=== PATIENT | female | born 1950 | race Caucasian/White ===

== ENCOUNTER 2017-12-03 18:23 | Emergency (ER) | payer MEDICARE ==
--- NOTE | 2017-12-03 18:55 | ER Report ---
History and Physical Time Seen By MD: 18:30 Hx. of Stated Complaint: new onset L sided weakness and numbness/tingling HPI/ROS CHIEF COMPLAINT: Left-sided weakness HISTORY OF PRESENT ILLNESS: 67-year-old female traveling from [place] to [place] in the car. She began having symptoms of numbness in her left arm. Appro ximately 30 miles is to [place]. She got out of [place] at the truck stop and fell because a left-sided weakness. Her put her in the car began traveling westbound. About 2 miles East of [place]. He pulled over to the side of the road when she began to have vomiting and loss control of her bowels. She was grossly hypoxic noted by EMS. Fingerstick sugar of sugar of 159. Patient has only known past medical history of hypertension. Her blood pressure grossly elevated. He was brought in by EMS as a stroke alert with left-sided weakness. She has flaccidity of the left upper extremity and some movement of the left lower extremity. Patient also complaining of back pain. EMS recorded a fingerstick glucose of 167 area. Patient's notes onset of symptoms [place] of [place] approximately 30 miles likely between [id number] REVIEW OF SYSTEMS: Constitutional: No fever, no chills. Eyes: No discharge. ENT: No sore throat. Cardiovascular: No chest pain, no palpitations. Respiratory: No cough, no shortness of breath. Gastrointestinal: No abdominal pain, no vomiting. Genitourinary: No hematuria. Musculoskeletal: No back pain. Skin: No rashes. Neurological: No headache. Allergies: Coded Allergies: No Known Drug Allergies (Unverified , 12/03/17) Home Meds Reported Medications Metoprolol Tartrate (METOPROLOL TARTRATE) 100 Mg Tablet, 1 TAB PO BID, TAB 12/03/17 Past Medical/Surgical History Hypertension, smoker, greater than one pack per day for 50 years Constitutional Vital Sign - Last 24 Hours 12/03/17 12/03/17 12/03/17 12/03/17 18:23 18:23 18:23 18:30 Temp 98.0 Pulse 104 Resp 18 B/P (MAP) 196/127 196/127 (150) Pulse Ox 54 54 O2 Delivery Room Air O2 Flow Rate 6.0 12/03/17 12/03/17 12/03/178/18 18:33 18:35 18:38 18:43 Pulse 100 88 85 Resp 26 28 B/P (MAP) 222/111 (148) 223/115 (151) Pulse Ox 95 99 100 O2 Flow Rate 15.0 12/03/17 12/03/17 12/03/17 12/03/17 18:48 18:50 18:53 18:58 Pulse 83 82 81 Resp 28 27 27 B/P (MAP) 209/108 (141) Pulse Ox 100 100 96 12/03/17 12/03/17 12/03/17 12/03/17 18:59 19:01 19:06 19:20 Pulse 83 Resp 26 B/P (MAP) 178/88 (118) 172/86 (114) 183/90 (121) Pulse Ox 95 12/03/17 12/03/17 12/03/17 12/03/17 19:25 19:31 19:34 19:37 Pulse 90 Resp 19 B/P (MAP) 209/97 (134) 192/93 (126) 186/87 (120) Pulse Ox 97 O2 Flow Rate 10.0 12/03/17 12/03/17 12/03/17 12/03/17 19:40 19:44 19:46 19:50 Pulse 86 Resp 28 B/P (MAP) 182/88 (119) 178/82 (114) 167/93 (117) Pulse Ox 92 12/03/17 12/03/17 12/03/17 12/03/17 19:51 19:55 20:00 20:05 Pulse 85 85 Resp 23 20 B/P (MAP) 159/89 (112) 164/83 (110) 156/82 (106) Pulse Ox 95 94 12/03/17 12/03/17 12/03/17 12/03/17 20:10 20:15 20:20 20:25 Pulse 82 82 Resp 19 17 B/P (MAP) 155/83 (107) 157/87 (110) 161/89 (113) 153/83 (106) Pulse Ox 94 92 12/03/17 12/03/17 12/03/17 12/03/17 20:30 20:35 20:40 20:45 Pulse ??? 81 80 80 Resp 17 29 B/P (MAP) 147/90 (109) 162/83 (109) 153/102 (119) 158/81 (106) Pulse Ox 95 12/03/17 12/03/17 12/03/17 12/03/17 20:50 20:52 20:55 20:57 Pulse 79 78 ??? Resp 18 63 B/P (MAP) 158/89 (112) Pulse Ox 92 93 91 O2 Flow Rate 3.0 12/03/17 12/03/17 12/03/17 12/03/17 20:59 21:00 21:01 21:07 Pulse 76 78 81 Resp 35 14 29 B/P (MAP) 148/83 (104) Pulse Ox 85 90 92 12/03/17 12/03/17 12/03/17 12/03/17 21:09 21:11 21:13 21:15 Pulse ??? 81 80 Resp 28 15 B/P (MAP) 170/124 (139) Pulse Ox 89 93 97 12/03/17 12/03/17 12/03/17 21:17 21:22 21:42 Pulse ? Resp 35 Pulse Ox 96 Intake and Output 12/03/17 12/03/17 12/04/17 14:59 22:59 06:59 Intake Total 131 ml Balance 131 ml Physical Exam General Appearance: The patient is alert, has no immediate need for airway protection and no signs of toxicity. Grossly elevated blood pressure 209/127. Patient cyanotic. Initial pulse ox 54% on 2 L Eyes: Pupils equal and round no pallor or injection. No facial droop noted ENT, Mouth: Mucous membranes are moist. Respiratory: There are no retractions, lungs are clear to auscultation. Cardiovascular: Regular rate and rhythm. Gastrointestinal: Abdomen is soft and non tender, no masses, bowel sounds normal. Neurological: Alert and oriented 3, cranial nerves II through XII intact movement of extremities except left upper extremity showing weakness Skin: Warm and dry, no rashes. Musculoskeletal: Neck is supple non tender. No bruits Extremities are nontender, nonswollen and have full range of motion. No edema, abrasion, left ankle DIFFERENTIAL DIAGNOSIS: After history and physical exam differential diagnosis was considered for altered mental status including but not limited to hypoglycemia, infectious process, electrolyte abnormality, head injury and intoxicants. Additionally,weakness including but not limited to electrolyte abnormality, depression, anxiety, CVA, spinal cord abnormality, and infectious causes. Medical Decision Making Data Points Result Diagram: 12/03/17184912/03/171849 Laboratory Hematology Test 12/03/17 18:35 12/03/17 18:50 Whole Blood Glucose 194 mg/DL (75-110) Red Blood Count 5.50 M/uL (4.17-5.56) Mean Corpuscular Volume 91.5 fL (80.0-96.0) Mean Corpuscular Hemoglobin 30.3 pg (26.0-33.0) Mean Corpuscular Hemoglobin Concent 33.1 g/dL (32.0-36.0) Red Cell Distribution Width 14.7 % (11.5-14.5) Mean Platelet Volume 8.1 fL (7.2-11.1) Neutrophils (%) (Auto) 73.1 % (39.4-72.5) Lymphocytes (%) (Auto) 20.3 % (17.6-49.6) Monocytes (%) (Auto) 5.6 % (4.1-12.4) Eosinophils (%) (Auto) 0.6 % (0.4-6.7) Basophils (%) (Auto) 0.4 % (0.3-1.4) Nucleated RBC Relative Count (auto) 0.0 /100WBC Neutrophils # (Auto) 10.1 K/uL (2.0-7.4) Lymphocytes # (Auto) 2.8 K/uL (1.3-3.6) Monocytes # (Auto) 0.8 K/uL (0.3-1.0) Eosinophils # (Auto) 0.1 K/uL (0.0-0.5) Basophils # (Auto) 0.1 K/uL (0.0-0.1) Nucleated RBC Absolute Count (auto) 0.00 K/uL Prothrombin Time 12.6 seconds (12.0-14.4) Prothromb Time International Ratio 0.94 Activated Partial Thromboplast Time 22 seconds (23-35) Sodium Level 140 mmol/L (137-145) Potassium Level 3.6 mmol/L (3.5-5.0) Chloride Level 99 mmol/L (98-107) Carbon Dioxide Level 30 mmol/L (22-31) Blood Urea Nitrogen 19 mg/dl (7-18) Creatinine 0.90 mg/dl (0.52-1.04) Glomerular Filtration Rate Calc > 60.0 Random Glucose 170 mg/dl (75-110) Calcium Level 8.5 mg/dl (8.4-10.2) Total Bilirubin 0.4 mg/dl (0.2-1.3) Aspartate Amino Transf (AST/SGOT) 34 U/L (0-35) Alanine Aminotransferase (ALT/SGPT) 35 U/L (0-56) Alkaline Phosphatase 105 U/L (0-126) Troponin I < 0.012 ng/ml B-Type Natriuretic Peptide 518 pg/ml (0-100) Total Protein 6.5 g/dl (6.3-8.2) Albumin 3.8 g/dl (3.5-5.0) Chemistry Test 12/03/17 18:35 12/03/17 18:50 Whole Blood Glucose 194 mg/DL (75-110) White Blood Count 13.8 k/uL (4.5-11.0) Red Blood Count 5.50 M/uL (4.17-5.56) Hemoglobin 16.7 g/dL (12.0-16.0) Hematocrit 50.3 % (34.0-47.0) Mean Corpuscular Volume 91.5 fL (80.0-96.0) Mean Corpuscular Hemoglobin 30.3 pg (26.0-33.0) Mean Corpuscular Hemoglobin Concent 33.1 g/dL (32.0-36.0) Red Cell Distribution Width 14.7 % (11.5-14.5) Platelet Count 248 K/uL (150-450) Mean Platelet Volume 8.1 fL (7.2-11.1) Neutrophils (%) (Auto) 73.1 % (39.4-72.5) Lymphocytes (%) (Auto) 20.3 % (17.6-49.6) Monocytes (%) (Auto) 5.6 % (4.1-12.4) Eosinophils (%) (Auto) 0.6 % (0.4-6.7) Basophils (%) (Auto) 0.4 % (0.3-1.4) Nucleated RBC Relative Count (auto) 0.0 /100WBC Neutrophils # (Auto) 10.1 K/uL (2.0-7.4) Lymphocytes # (Auto) 2.8 K/uL (1.3-3.6) Monocytes # (Auto) 0.8 K/uL (0.3-1.0) Eosinophils # (Auto) 0.1 K/uL (0.0-0.5) Basophils # (Auto) 0.1 K/uL (0.0-0.1) Nucleated RBC Absolute Count (auto) 0.00 K/uL Prothrombin Time 12.6 seconds (12.0-14.4) Prothromb Time International Ratio 0.94 Activated Partial Thromboplast Time 22 seconds (23-35) Glomerular Filtration Rate Calc > 60.0 Calcium Level 8.5 mg/dl (8.4-10.2) Total Bilirubin 0.4 mg/dl (0.2-1.3) Aspartate Amino Transf (AST/SGOT) 34 U/L (0-35) Alanine Aminotransferase (ALT/SGPT) 35 U/L (0-56) Alkaline Phosphatase 105 U/L (0-126) Troponin I < 0.012 ng/ml B-Type Natriuretic Peptide 518 pg/ml (0-100) Total Protein 6.5 g/dl (6.3-8.2) Albumin 3.8 g/dl (3.5-5.0) Coagulation Test 12/03/17 18:50 Prothrombin Time 12.6 seconds Prothromb Time International Ratio 0.94 Activated Partial Thromboplast Time 22 seconds EKG/Imaging EKG Interpretation 12 lead EK Rhythm: normal sinus rhythm Babcock: Right axis deviation QRS: normal ST segments: Diffuse nonspecific ST and T-wave changes, no overt signs of ischemia, no old EKGs for comparison Imaging X-ray: Single view portable chest x-ray, was obtained. I viewed the images myself on the PACS system. My interpretation of the images is: hazy lung goodman consistent with mild pulmonary vascular congestion, no effusion, normal mediastinum, borderline cardiomegaly . The radiologist interpretation had no clinically significant variation from this interpretation. Results: CT scan of the head without contrast was obtained. The results of the study are EXAMINATION: CT HEAD WITHOUT CONTRAST COMPARISON: None available HISTORY: Altered mental status. Left-sided paralysis. PROCEDURE: Noncontrast CT from the vertex through the skull base. One of the following dose optimization techniques was utilized in the performance of this exam: Automated exposure control; adjustment of the mA and/or kV according to the patient's size; or use of an iterative reconstruction technique. Specific details can be referenced in the facility's radiology CT exam operational policy. FINDINGS: Brain volume: Age-appropriate. Hemorrhage/extra-axial fluid: None. Mass effect/midline shift/edema: None. Ischemia: Perez-white differentiation is preserved. Ventricles and basal cisterns: Within normal limits. Posterior fossa: Negative. Vessels: Negative. Calvarium, skull base, and scalp: Negative. Visualized sinuses and orbits: Within normal limits. IMPRESSION: Negative noncontrast head CT. The study was read by the radiologist. I viewed the images myself on the PACS system. Results: CT scan of theCTA pulmonary angiogram was obtained. The results of the study are EXAMINATION: CT CHEST PULMONARY ANGIOGRAM COMPARISON: Chest x-ray same day. HISTORY: Hypoxia. PROCEDURE: Pulmonary arterial phase imaging of the chest with 75 mL intravenous Isovue 370. Reconstruction of the source data set includes multiplanar 2D in the sagittal and coronal planes, and 3D reconstructed coronal slab MIP series. One of the following dose optimization techniques was utilized in the performance of this exam: Automated exposure control; adjustment of the mA and/or kV according to the patient's size; or use of an iterative reconstruction technique. Specific details can be referenced in the facility's radiology CT exam operational policy. FINDINGS: Pulmonary vasculature: There is good contrast opacification of the pulmonary arterial system. 4.0 cm dilated main pulmonary artery. No pulmonary artery filling defect through the subsegmental level. Cardiac and mediastinum: Cardiac chamber size is within normal limits. No pericardial effusion. No thoracic aortic aneurysm. No thoracic lymph node enl argement. Lungs and pleura: Mild apical emphysema. Minimal dependent atelectasis. No consolidation or nodule. No pneumothorax, edema, or effusion. Airways: Negative. Upper abdomen: Left adrenal 3.2 x 2.4 cm adenoma. No acute findings. Osseous structures: L1 superior endplate chronic appearing deformity. Mild concavity of the T4 superior endplate is also favored to be chronic. Right posterior rib healed fractures. No acute findings. IMPRESSION: 1. No pulmonary embolism or evidence of acute cardiopulmonary disease. 2. 4.0 cm dilated main pulmonary artery is suggestive of pulmonary artery hypertension. 3. Left adrenal 3.2 cm adenoma. 4. Mild emphysema. The study was read by the radiologist. I viewed the images myself on the PACS system. Results: CT scan of the head and cervical neck CTA was obtained. The results of the study are Examination: CTA of the head and neck Comparison: Noncontrast head CT earlier the same day. History: Left sided weakness Procedure: Arterial phase imaging of the head and neck with 75 mL intravenous Isovue 370. Reconstruction of the source data set includes multiplanar 2D in the sagittal and coronal planes, and 3D reconstructed coronal slab MIP series. Percent stenosis is based on NASCET criteria. One of the following dose optimization techniques was utilized in the performance of this exam: Automated exposure control; adjustment of the mA and/or kV according to the patient's size; or use of an iterative r econstruction technique. Specific details can be referenced in the facility's radiology CT exam operational policy. Findings: Aortic arch: Minimal arch atherosclerosis. Arch vessel origins are widely patent. Right extracranial carotid system: At the common carotid bifurcation is a short segment intimal flap with an immediately distal 8 mm long segment of partially calcified plaque in the proximal internal carotid artery. The plaque results in a near occlusion of the proximal internal carotid artery; the distal internal carotid artery is otherwise unremarkable. The external carotid artery is preserved. Left extracranial carotid system: Common carotid artery is unremarkable. 12 mm long segment of heterogeneously partially calcified plaque in the proximal internal carotid artery with a 60-70% luminal stenosis. The distal internal carotid artery is widely patent. Vertebral arteries: Noncalcified plaque at the right vertebral artery origin results in approximately 50-70% luminal narrowing. The left vertebral artery origin is widely patent. The vertebral arteries are codominant and otherwise unremarkable. Intracranial internal carotid arteries: Minimal atherosclerosis. Anterior cerebral arteries: Negative. Anterior communicating artery is present. Middle cerebral arteries: Negative. Territorial branches are symmetric. Vertebrobasilar system and posterior cerebral arteries: Basilar artery forms normally. Both posterior cerebral arteries arise from the basilar artery. Bilate ral posterior communicating arteries are present; the right posterior communicating artery is very diminutive. Posterior cerebral arteries are both patent. Visualized cerebellar vessels are unremarkable. Dural venous sinuses: Normal enhancement. Brain: Better evaluated on the earlier noncontrast head CT. Cervical spine: No vertebral body height loss or malalignment. Mild degenerative change but still be at the atlantodens interval. Paranasal sinus and orbits: Negative. Prevertebral soft tissues: Negative. Visualized upper chest: As discussed on the chest CT. IMPRESSION: 1. Right common carotid bifurcation small intimal flap with an 8 mm long segment of partially calcified plaque in the proximal internal carotid artery results in near occlusion of the proximal internal carotid artery lumen. The distal internal carotid artery is normal in caliber. 2. Proximal left internal carotid artery 12 mm long segment of partially calcified plaque results in 60-70% luminal stenosis. 3. Right vertebral artery origin noncalcified plaque with 50-70% luminal stenosis. 4. Negative CTA of the intracranial arteries. The study was read by the radiologist. I viewed the images myself on the PACS system. ED Course/Re-evaluation Clinical Indication for ER IV: IV Access ED Course Tele-stroke consultation with Dr. Aminah Flores initiated on stroke camera. Patient was admitted directly to CT and then returned to an examination room. H&P was done. The differential diagnoses was considered. On clinical examination. Strep any weakness and some left lower extremity weakness. She was grossly hypoxic at 54% on arrival. Contributed to some of her functional deficit. After returning from CT scan. Patient's O2 saturation improved with 100% nonrebreather mask to 100%. Her mental status improved as well. Tele- stroke camera was initiated. Patient's blood pressure was grossly elevated. She was given labetalol 20 mg IV 2. Over approximately 20 minute period of monitoring her blood pressure. She was taken back to CT for CT a pulmonary angiogram, CTA of neck and CTA of head. Patient returned with elevated blood pressure from radiology. Nicardipine drip was initiated. Repeat blood pressure after a short 20 minute period showed continued elevation of the blood pressure in the nicardipine drip was advanced to 7.5. TPA was administered with consultation of Dr. Flores based on patient's weight. Accepting physician at [facility] will be Dr. Valencia neuro ICU attending Decision to Disposition Date: Dec 03, 2017 Decision to Disposition Time: 19:20 Critical Care Time I spent a total of 120 minutes of critical care time in obtaining history, performing a physical exam, bedside monitoring of interventions, collecting and interpreting tests and discussion with consultants but not including time spent performing procedures. Depart Departure Latest Vital Signs Vital Signs Date Time Temp Pulse Resp B/P (MAP) Pulse Ox O2 Delivery O2 Flow Rate FiO2 9/8/18 21:42 ??? 12/03/17 21:17 35 96 12/03/17 21:15 170/124 (139) 12/03/17 20:52 3.0 12/03/17 18:23 98.0 Room Air Impression: Primary Impression: Altered mental status Additional Impressions: CVA (cerebral vascular accident) Hypoxia Condition: Critical Disposition: XFER TO [facility] Problem Qualifiers JOSE MOSQUEDA DO Dec 03, 2017 18:55
--- NOTE | 2017-12-03 18:59 | RADIOLOGY IMAGING REPORT ---
FACILITY: [facility] PATIENT NAME: Twila Conti : 1950 MR: [id number] V: [id number] EXAM DATE: ORDERING PHYSICIAN: JOSE MOSQUEDA TECHNOLOGIST: Location: [facility] [place] Patient: Twila Conti : 1950 Visit/Account:[id number] Date of Sevice: 12/03/2017 Examination: CHEST SINGLE AP Comparison: None. History: Altered mental status. Findings: Cardiac and hilar contour is mildly enlarged. Mild pulmonary vascular congestion. Mild chinmay bronchial thickening. No consolidation. No pneumothorax or effusion. Right posterior lateral healed r ib fractures. IMPRESSION: 1. Mild cardiac silhouette enlargement and vascular congestion. 2. Peribronchial thickening suggestive of an acute versus chronic bronchitis or reactive airway disea se. Mild pulmonary edema is considered less likely. Report Dictated By: Miguel Szymanski MD at 12/03/2017 6:53 PM Report E-Signed By: Miguel Szymanski MD at 12/03/2017 6:56 PM [id number]
--- NOTE | 2017-12-03 18:59 | RADIOLOGY IMAGING REPORT ---
FACILITY: [facility] PATIENT NAME: Twila Conti : 1950 MR: [id number] V: [id number] EXAM DATE: ORDERING PHYSICIAN: JOSE MOSQUEDA TECHNOLOGIST: Location: [facility] [place] Patient: Twila Conti : 1950 Visit/Account:[id number] Date of Sevice: 12/03/2017 EXAMINATION: CT HEAD WITHOUT CONTRAST COMPARISON: None available HISTORY: Altered mental status. Left-sided paralysis. PROCEDURE: Noncontrast CT from the vertex through the skull base. One of the following dose optimizat ion techniques was utilized in the performance of this exam: Automated exposure control; adjustment o f the mA and/or kV according to the patient's size; or use of an iterative reconstruction technique. Specific details can be referenced in the facility's radiology CT exam operational policy. FINDINGS: Brain volume: Age-appropriate. Hemorrhage/extra-axial fluid: None. Mass effect/midline shift/edema: None. Ischemia: Perez-white differentiation is preserved. Ventricles and basal cisterns: Within normal limits. Posterior fossa: Negative. Vessels: Negative. Calvarium, skull base, and scalp: Negative. Visualized sinuses and orbits: Within normal limits. IMPRESSION: Negative noncontrast head CT. Results were discussed with Dr. Flores at 12/03/2017 6:56 PM. Report Dictated By: Miguel Szymanski MD at 12/03/2017 6:51 PM Report E-Signed By: Miguel Szymanski MD at 12/03/2017 6:57 PM WSN:[id number]
[2017-12-03 19:00] LABS: PLATELET COUNT, AUTOMATED 248 K/uL (150-450)
[2017-12-03] MEDS ORDERED: NICARDIPINE(*) 20MG/NS 200 ML 200 ML IV ONE (19:05)
[2017-12-03 19:06] LABS: INR 0.94
[2017-12-03] MEDS ORDERED: NS(*) 0.9% 50 ML BAG 50 ML ONE ×2 (19:08→19:16)
[2017-12-03] MEDS ORDERED: IOPAMIDOL 76% 75 ML INFUS BTL 75 ML ONE ×2 (19:09→19:16)
[2017-12-03] MEDS ORDERED: LABETALOL HCL 100 MG/20ML VIAL IVP ONE ×2 (19:10→19:15)
[2017-12-03] MEDS ORDERED: ALTEPLASE RECOMB 100 MG/100 ML VIAL IV ONE (19:15)
[2017-12-03] MEDS ORDERED: METO-257 PO (19:27)
--- NOTE | 2017-12-03 20:05 | RADIOLOGY IMAGING REPORT ---
FACILITY: [facility] PATIENT NAME: Twila Conti : 1950 MR: [id number] V: [id number] EXAM DATE: ORDERING PHYSICIAN: JOSE MOSQUEDA TECHNOLOGIST: Location: [facility] Patient: Twila Conti : 1950 Visit/Account:[id number] Date of Sevice: 12/03/2017 EXAMINATION: CT CHEST PULMONARY ANGIOGRAM COMPARISON: Chest x-ray same day. HISTORY: Hypoxia. PROCEDURE: Pulmonary arterial phase imaging of the chest with 75 mL intravenous Isovue 370. Reconstru ction of the source data set includes multiplanar 2D in the sagittal and coronal planes, and 3D recon structed coronal slab MIP series. One of the following dose optimization techniques was utilized in the performance of this exam: Autom ated exposure control; adjustment of the mA and/or kV according to the patient's size; or use of an i terative reconstruction technique. Specific details can be referenced in the facility's radiology C T exam operational policy. FINDINGS: Pulmonary vasculature: There is good contrast opacification of the pulmonary arterial system. 4.0 cm dilated main pulmonary artery. No pulmonary artery filling defect through the subsegmental level. Cardiac and mediastinum: Cardiac chamber size is within normal limits. No pericardial effusion. No th oracic aortic aneurysm. No thoracic lymph node enlargement. Lungs and pleura: Mild apical emphysema. Minimal dependent atelectasis. No consolidation or nodule. N o pneumothorax, edema, or effusion. Airways: Negative. Upper abdomen: Left adrenal 3.2 x 2.4 cm adenoma. No acute findings. Osseous structures: L1 superior endplate chronic appearing deformity. Mild concavity of the T4 superi or endplate is also favored to be chronic. Right posterior rib healed fractures. No acute findings. IMPRESSION: 1. No pulmonary embolism or evidence of acute cardiopulmonary disease. 2. 4.0 cm dilated main pulmonary artery is suggestive of pulmonary artery hypertension. 3. Left adrenal 3.2 cm adenoma. 4. Mild emphysema. Report Dictated By: Miguel Szymanski MD at 12/03/2017 7:55 PM Report E-Signed By: Miguel Szymanski MD at 12/03/2017 8:01 PM WSN:[id number]
--- NOTE | 2017-12-03 20:20 | RADIOLOGY IMAGING REPORT ---
FACILITY: [facility] - [place] PATIENT NAME: Twila Conti : 1950 MR: [id number] V: [id number] EXAM DATE: ORDERING PHYSICIAN: JOSE MOSQUEDA TECHNOLOGIST: Location: [facility] [place] Patient: Twila Conti : 1950 Visit/Account:[id number] Date of Sevice: 12/03/2017 Examination: CTA of the head and neck Comparison: Noncontrast head CT earlier the same day. History: Left sided weakness Procedure: Arterial phase imaging of the head and neck with 75 mL intravenous Isovue 370. Reconstruct ion of the source data set includes multiplanar 2D in the sagittal and coronal planes, and 3D reconst ructed coronal slab MIP series. Percent stenosis is based on NASCET criteria. One of the following dose optimization techniques was utilized in the performance of this exam: Autom ated exposure control; adjustment of the mA and/or kV according to the patient's size; or use of an i terative reconstruction technique. Specific details can be referenced in the facility's radiology C T exam operational policy. Findings: Aortic arch: Minimal arch atherosclerosis. Arch vessel origins are widely patent. Right extracranial carotid system: At the common carotid bifurcation is a short segment intimal flap with an immediately distal 8 mm long segment of partially calcified plaque in the proximal internal c arotid artery. The plaque results in a near occlusion of the proximal internal carotid artery; the di stal internal carotid artery is otherwise unremarkable. The external carotid artery is preserved. Left extracranial carotid system: Common carotid artery is unremarkable. 12 mm long segment of hetero geneously partially calcified plaque in the proximal internal carotid artery with a 60-70% luminal st enosis. The distal internal carotid artery is widely patent. Vertebral arteries: Noncalcified plaque at the right vertebral artery origin results in approximately 50-70% luminal narrowing. The left vertebral artery origin is widely patent. The vertebral arteries are codominant and otherwise unremarkable. Intracranial internal carotid arteries: Minimal atherosclerosis. Anterior cerebral arteries: Negative. Anterior communicating artery is present. Middle cerebral arteries: Negative. Territorial branches are symmetric. Vertebrobasilar system and posterior cerebral arteries: Basilar artery forms normally. Both posterior cerebral arteries arise from the basilar artery. Bilateral posterior communicating arteries are pres ent; the right posterior communicating artery is very diminutive. Posterior cerebral arteries are bot h patent. Visualized cerebellar vessels are unremarkable. Dural venous sinuses: Normal enhancement. Brain: Better evaluated on the earlier noncontrast head CT. Cervical spine: No vertebral body height loss or malalignment. Mild degenerative change but still be at the atlantodens interval. Paranasal sinus and orbits: Negative. Prevertebral soft tissues: Negative. Visualized upper chest: As discussed on the chest CT. IMPRESSION: 1. Right common carotid bifurcation small intimal flap with an 8 mm long segment of partially calcifi ed plaque in the proximal internal carotid artery results in near occlusion of the proximal internal carotid artery lumen. The distal internal carotid artery is normal in caliber. 2. Proximal left internal carotid artery 12 mm long segment of partially calcified plaque results in 60-70% luminal stenosis. 3. Right vertebral artery origin noncalcified plaque with 50-70% luminal stenosis. 4. Negative CTA of the intracranial arteries. Results were discussed with Dr. Flores at 12/03/2017 8:12 PM. Report Dictated By: Miguel Szymanski MD at 12/03/2017 8:01 PM Report E-Signed By: Miguel Szymanski MD at 12/03/2017 8:16 PM WSN:[id number]
--- NOTE | 2017-12-03 20:20 | RADIOLOGY IMAGING REPORT ---
FACILITY: [facility] - [place] PATIENT NAME: Twila Conti : 1950 MR: [id number] V: [id number] EXAM DATE: ORDERING PHYSICIAN: JOSE MOSQUEDA TECHNOLOGIST: Location: [facility] - [place] Patient: Twila Conti : 1950 Visit/Account:[id number] Date of Sevice: 12/03/2017 Examination: CTA of the head and neck Comparison: Noncontrast head CT earlier the same day. History: Left sided weakness Procedure: Arterial phase imaging of the head and neck with 75 mL intravenous Isovue 370. Reconstruct ion of the source data set includes multiplanar 2D in the sagittal and coronal planes, and 3D reconst ructed coronal slab MIP series. Percent stenosis is based on NASCET criteria. One of the following dose optimization techniques was utilized in the performance of this exam: Autom ated exposure control; adjustment of the mA and/or kV according to the patient's size; or use of an i terative reconstruction technique. Specific details can be referenced in the facility's radiology C T exam operational policy. Findings: Aortic arch: Minimal arch atherosclerosis. Arch vessel origins are widely patent. Right extracranial carotid system: At the common carotid bifurcation is a short segment intimal flap with an immediately distal 8 mm long segment of partially calcified plaque in the proximal internal c arotid artery. The plaque results in a near occlusion of the proximal internal carotid artery; the di stal internal carotid artery is otherwise unremarkable. The external carotid artery is preserved. Left extracranial carotid system: Common carotid artery is unremarkable. 12 mm long segment of hetero geneously partially calcified plaque in the proximal internal carotid artery with a 60-70% luminal st enosis. The distal internal carotid artery is widely patent. Vertebral arteries: Noncalcified plaque at the right vertebral artery origin results in approximately 50-70% luminal narrowing. The left vertebral artery origin is widely patent. The vertebral arteries are codominant and otherwise unremarkable. Intracranial internal carotid arteries: Minimal atherosclerosis. Anterior cerebral arteries: Negative. Anterior communicating artery is present. Middle cerebral arteries: Negative. Territorial branches are symmetric. Vertebrobasilar system and posterior cerebral arteries: Basilar artery forms normally. Both posterior cerebral arteries arise from the basilar artery. Bilateral posterior communicating arteries are pres ent; the right posterior communicating artery is very diminutive. Posterior cerebral arteries are bot h patent. Visualized cerebellar vessels are unremarkable. Dural venous sinuses: Normal enhancement. Brain: Better evaluated on the earlier noncontrast head CT. Cervical spine: No vertebral body height loss or malalignment. Mild degenerative change but still be at the atlantodens interval. Paranasal sinus and orbits: Negative. Prevertebral soft tissues: Negative. Visualized upper chest: As discussed on the chest CT. IMPRESSION: 1. Right common carotid bifurcation small intimal flap with an 8 mm long segment of partially calcifi ed plaque in the proximal internal carotid artery results in near occlusion of the proximal internal carotid artery lumen. The distal internal carotid artery is normal in caliber. 2. Proximal left internal carotid artery 12 mm long segment of partially calcified plaque results in 60-70% luminal stenosis. 3. Right vertebral artery origin noncalcified plaque with 50-70% luminal stenosis. 4. Negative CTA of the intracranial arteries. Results were discussed with Dr. Flores at 12/03/2017 8:12 PM. Report Dictated By: Miguel Szymanski MD at 12/03/2017 8:01 PM Report E-Signed By: Miguel Szymanski MD at 12/03/2017 8:16 PM WSN:[id number]
[2017-12-03 21:15] VITALS: BP 170/124
--- NOTE | 2017-12-03 22:04 | EKG ---
FACILITY: [facility] - [place] PATIENT NAME: SYED YARBROUGH : [id number] MR: [id number] V: [id number] EXAM DATE: ORDERING PHYSICIAN: JOSE MOSQUEDA TECHNOLOGIST: VERONICA Test Reason : ? STROKE Blood Pressure : / mmHG Vent. Rate : 083 BPM Atrial Rate : 083 BPM P-R Int : 146 ms QRS Dur : 088 ms QT Int : 392 ms P-R-T Axes : 080 098 047 degrees QTc Int : 460 ms Normal sinus rhythm Rightward axis Nonspecific ST abnormality Abnormal ECG No previous ECGs available Confirmed by Robbie Adams ([id number] on 12/04/2017 6:33:25 AM Referred By: Confirmed By:Robbie Santa
== END 2017-12-03 21:35 | disposition short-term general hospital (02) ==
LOC: ER 18:27
DX: I63.9 Cerebral infarction, unspecified (principal); R41.82 Altered mental status, unspecified; R09.02 Hypoxemia
CPT/HCPCS: 36416; 70450; 70496; 70498; 71045; 71275; 82948; 83880; 84484; 85025; 85610; 85730; 93005; 96361; 96365; 96375; 99291; 99292; J2997; J3490; J7050; Q9967; 82040; 82247; 82310; 82374; 82435; 82565; 82947; 84075; 84132; 84155; 84295; 84450; 84460; 84520; C1758

== ENCOUNTER → 2017-12-03 | Outpatient (CLI) | payer MEDICARE ==
[~2017-12-03] MED LIST: METO-257 PO
== END ==
LOC: AMB 18:11
PROVIDERS: ATTEND Nurse Practitioner
DX: I63.9 Cerebral infarction, unspecified (principal)
CPT/HCPCS: A0425; A0428

== ENCOUNTER → 2017-12-03 | Outpatient (REF) | LOC: AMB 20:25 | PROVIDERS: ATTEND Nurse Practitioner | DX: Z76.89 Persons encountering health services in other specified circumstances (principal) ==